=== PATIENT | female | born 1960 | race Hispanic/Latino ===

== ENCOUNTER 2016-07-30 18:51 | Emergency (ER) | payer BC ==
[2016-07-30 18:58] VITALS: RESP 16; TEMP 98
[2016-07-30 20:25] LABS: BASO % 0.9 % (0.0-2.0); EOS # 0.1 K/uL (0.0-0.7); EOS % 2.1 % (0.0-4.0); HEMATOCRIT 42.9 % (34.0-47.0); LYMPH # 1.6 K/uL (1.0-4.3); LYMPH % 34.6 % (20.0-40.0); MEAN CELL VOLUME 92.5 fl (81.0-99.0); MEAN CORPUSCULAR HEMOGLOBIN 30.4 pg (27.0-31.0); MEAN CORPUSCULAR HGB CONC 32.8 g/dL (33.0-37.0); MEAN PLATELET VOLUME 10.3 fl (7.2-11.7); MONO # 0.5 K/uL (0.0-0.8); MONO % 10.2 % (0.0-10.0); NEUT # 2.5 K/uL (1.8-7.0); NEUT % 52.2 % (50.0-75.0); RED CELL DISTRIBUTION WIDTH 12.5 % (11.5-14.5); WHITE BLOOD COUNT 4.8 K/uL (4.8-10.8)
[2016-07-30 20:34] LABS: ALB/GLOB RATIO 1.8 (1.0-2.1); ALKALINE PHOSPHATASE 60 U/L (38-126); ALT/SGPT 29 U/L (9-52); AST/SGOT 29 U/L (14-36); BILIRUBIN,TOTAL 0.6 mg/dl (0.2-1.3); BLOOD UREA NITROGEN 21 mg/dl (7-17); CALCIUM 9.8 mg/dL (8.4-10.2); CARBON DIOXIDE 29 mmol/L (22-30); CHLORIDE 100 mmol/L (98-107); GFR AFRICAN-AMERICAN > 60; GLUCOSE,RANDOM 84 mg/dL (65-105); POTASSIUM 3.9 MMOL/L (3.6-5.0); SODIUM 138 mmol/l (132-148)
--- NOTE | 2016-07-30 21:31 | ED PDOC ---
HPI: Chest Pain Time Seen by Provider: 07/30/16 19:36 Chief Complaint (Nursing): Chest Pain Chief Complaint (Provider): Chest Pain History Per: Patient History/Exam Limitations: no limitations Onset/Duration Of Symptoms: Hrs (x2 hours prior to arrival) Current Symptoms Are (Timing): Better Additional Complaint(s): 56 y/o female with a past medical history of babak's disease and pulmonary sarcoid presents to the emergency department with a complaint of shortness of breath (had resolved since) and chest pain, onset while walking, about 2 hours prior to arrival. Associated with pain radiating to the left shoulder and neck region. Describes sensation in xiphoid area with tightness that would not allow her to take deep breaths. Patient states pain lasted 1 hour and then spontaneously resolved. Upon arrival, patient was completely asymptomatic. Denies exertion, nausea, vomiting, and diaphoresis. Past Medical History Reviewed: Historical Data, Nursing Documentation, Vital Signs Vital Signs: Last Vital Signs Temp 98.0 F 07/30/16 18:53 Pulse 70 07/30/16 18:53 Resp 16 07/30/16 18:53 BP 158/106 H 07/30/16 18:53 Pulse Ox 100 07/30/16 21:48 - Medical History Other PMH: thyroid diease (babak's) and pulmonary sarcoid - Surgical History Other surgeries: Lung biopsy - Family History Family History: States: Other Other Family History: valvular heart disease (mother) - Social History Current smoker - smoking cessation education provided: No Alcohol: None Drugs: Denies - Allergies Allergies/Adverse Reactions: Allergies Allergy/AdvReac Type Severity Reaction Status Date / Time sulfamethoxazole Allergy RASH Verified 07/30/16 20:11 [From Bactrim] trimethoprim [From Bactrim] Allergy RASH Verified 07/30/16 20:11 Review of Systems ROS Statement: Except As Marked, All Systems Reviewed And Found Negative Constitutional: Negative for: Sweats, Other (Exertion) Cardiovascular: Positive for: Chest Pain (in xiphoid area with tightness ), Other (Chest tightness) Respiratory: Positive for: Shortness of Breath (Had resolved since) Gastrointestinal: Negative for: Nausea, Vomiting, Diarrhea Musculoskeletal: Positive for: Neck Pain (Left-sided), Shoulder Pain (Left) Physical Exam - Reviewed Nursing Documentation Reviewed: Yes Vital Signs Reviewed: Yes - Physical Exam Appears: Positive for: Non-toxic, No Acute Distress Head Exam: Positive for: ATRAUMATIC, NORMOCEPHALIC Skin: Positive for: Normal Color, Warm, Dry ENT: Positive for: Normal ENT Inspection. Negative for: Pharyngeal Erythema Neck: Positive for: Normal, Supple Cardiovascular/Chest: Positive for: Regular Rate, Rhythm. Negative for: Murmur Respiratory: Positive for: Normal Breath Sounds. Negative for: Accessory Muscle Use, Respiratory Distress Gastrointestinal/Abdominal: Positive for: Normal Exam, Soft. Negative for: Tenderness Back: Positive for: Normal Inspection Extremity: Positive for: Normal ROM. Negative for: Pedal Edema, Deformity Neurologic/Psych: Positive for: Alert, Oriented - Laboratory Results Result Diagrams: 07/30/16 20:20 07/30/16 20:20 - ECG O2 Sat by Pulse Oximetry: 100 (RA) Pulse Ox Interpretation: Normal Medical Decision Making Medical Decision Making: Time: 19:36 Initial impression: Chest pain upon arrival but asymptomatic in ED Initial plan: --Electrocardiogram Stat --Partial Thromboplastin Time (COAG) --Prothrombin Time (COAG) --Chest Two Views (PA/LAT) (RAD) --IV Insertion --Revaluation --Labs reviewed which show no clinical abnormalities. --Chest X-ray show no acute disease. --Patient remains asymptomatic in ED and will follow up with her provider. Time: 21:20 Upon provider reevaluation patient is feeling better, is medically stable, and requires no further treatment in the ED at this time. Patient will be discharge. Counseling was provided and all questions were answered regarding diagnosis and need for follow up with provider. There is agreement to discharge plan. Return if symptoms persist or worsen. Clinical Impression: Atypical chest pain Scribe Attestation: Documented by Desiree Sexton, acting as a scribe for Heath Gonzalez MD. Provider Scribe Attestation: All medical record entries made by the Scribe were at my direction and personally dictated by me. I have reviewed the chart and agree that the record accurately reflects my personal performance of the history, physical exam, medical decision making, and the department course for this patient. I have also personally directed, reviewed, and agree with the discharge instructions and disposition. Disposition - Clinical Impression Clinical Impression: Atypical chest pain - Disposition Disposition: Routine/Home Disposition Time: 21:20 Condition: STABLE Additional Instructions: Please follow up with your doctor in 2-3 days Instructions: Noncardiac Chest Pain (ED)
[2016-07-30 22:13] VITALS: BP 114/72; PULSE 69
[2016-07-30 22:14] VITALS: O2SAT 100
--- NOTE | 2016-07-31 10:29 | RAD ---
HISTORY: chest pain COMPARISON: No prior. TECHNIQUE: Chest PA and lateral FINDINGS: LUNGS: Lung greene are hyperinflated with slight flattening of the diaphragms and increase in retrosternal airspace. Findings suggest underlying emphysema and or COPD. Clinical correlation recommended. No focal consolidation. Mild biapical pleural thickening PLEURA: No significant pleural effusion identified. No pneumothorax apparent. CARDIOVASCULAR: Normal. OSSEOUS STRUCTURES: No significant abnormalities. VISUALIZED UPPER ABDOMEN: Normal. OTHER FINDINGS: None. IMPRESSION: Lung greene are hyperinflated with slight flattening of the diaphragms and increase in retrosternal airspace. Findings suggest underlying emphysema and or COPD. Clinical correlation recommended. No focal consolidation. Mild biapical pleural thickening
--- NOTE | 2016-08-02 19:05 | CARD ---
APPROVED REPORT EKG Measurement Heart [id number] ID [id number] <Conclusion> Normal sinus rhythm Normal ECG
== END 2016-07-30 21:30 | disposition home or self-care (01) ==
LOC: H.ER 18:51
DX: R07.9 Chest pain, unspecified (principal); E06.3 Autoimmune thyroiditis